=== PATIENT | female | born 1945 | race Caucasian/White ===

== ENCOUNTER 2018-07-06 08:09 | Day surgery (SDC) | payer MEDICARE, BC ==
[~2018-07-06 08:09] MED LIST: Cefuroxime 10 MG/ML SYRINGE EYERT SCH; Lidocaine 1% PF 2 ML SDV INJECT SCH; Pilocarpine 4% Ophth Soln 15 ML Bot EYERT SCH
[2018-07-06] MEDS: Polymyxin B/Trimethoprim 10 ML Bottle EYERT SCH ×3 (09:28→11:20)
[2018-07-06] MEDS: Brimonidine 0.2% Ophth Soln 5 ML Bottle EYERT SCH ×3 (09:33→11:20)
--- NOTE | 2018-07-06 09:37 | PCM.PREANE ---
Preanesthetic Assessment - Procedure Proposed Procedure: right cataract - Anesthesia/Transfusion/Family Hx Anesthesia History: Prior Anesthesia Without Reaction Family History of Anesthesia Reaction: No Transfusion History: No Prior Transfusion(s) - Review of Systems General: No Symptoms Pulmonary: No Symptoms Cardiovascular: No Symptoms Gastrointestinal: No Symptoms Neurological: No Symptoms Other: Reports: Diabetes, Sinus Problem - Physical Assessment NPO Status Date: 07/05/18 NPO Status Time: 23:00 Pulse: 72 O2 Sat by Pulse Oximetry: 98 Respiratory Rate: 16 Blood Pressure: 163/63 Temperature: 98.1 F Height: 5 ft 4 in Weight: 68.039 kg ASA Class: 2 Mental Status: Alert & Oriented x3 Airway Class: Mallampati = 1 Dentition: Reports: Broken Tooth/Teeth, Missing Tooth/Teeth, Caries Thyro-Mental Finger Breadths: 3 Mouth Opening Finger Breadths: 3 ROM/Head Extension: Full Lungs: Clear to Auscultation, Normal Respiratory Effort Cardiovascular: Regular Rate, Regular Rhythm - Allergies Allergies/Adverse Reactions: Allergies Allergy/AdvReac Type Severity Reaction Status Date / Time No Known Allergies Allergy Verified 07/05/18 15:29 - Blood Blood Available: No - Acknowledgements Anesthesia Type Planned: MAC Pt an Appropriate Candidate for the Planned Anesthesia: Yes Alternatives and Risks of Anesthesia Discussed w Pt/Guardian: Yes Pt/Guardian Understands and Agrees with Anesthesia Plan: Yes PreAnesthesia Questionnaire HEENT History: Reports: Cataract Cardiovascular History: Reports: Hypertension Respiratory History: Reports: None Gastrointestinal History: Reports: None Psychiatric History: Reports: None Oncologic (Cancer) History: Reports: None - Past Surgical History HEENT Surgical History: Reports: Cataract Surgery, Tonsillectomy - History Comment History Comment: amlodipine 5 mg q day. - SUBSTANCE USE Smoking Status *Q: Never Smoker Tobacco Use Within Last Twelve Months: No Second Hand Smoke Exposure: No Days Per Week of Alcohol Use: 0 Recreational Drug Use History: No - HOME MEDS Home Medications: Home Meds Lisinopril [Prinivil] 5 mg PO DAILY 07/05/18 [History] metFORMIN [Glucophage XR] 1,000 mg PO BID 07/05/18 [History] - CURRENT (IN HOUSE) MEDS Current Meds: Current Medications Brimonidine Tartrate (Alphagan 0.2% Ophth Soln) 0 ml EYERT ASDIRECTED WILL Stop: 07/06/18 18:00 Cefuroxime Sodium (Zinacef) 0 mg EYERT ASDIRECTED WILL Stop: 07/06/18 18:00 Lidocaine HCl (Xylocaine-Mpf 1%) 10 ml INJECT ASDIRECTED WILL Stop: 07/06/18 18:00 Phenylephrine HCl (Gregorio-Synephrine 2.5% Ophth Soln) 0 ml EYERT ASDIRECTED WILL Stop: 07/06/18 18:00 Pilocarpine HCl (Pilocar 4% Ophth Soln) 0 ml EYERT ASDIRECTED WILL Stop: 07/06/18 18:00 Polymyxin/Trimethoprim Sulfate (Polytrim Ophth Soln) 0 ml EYERT ASDIRECTED WILL Stop: 07/06/18 18:00 Tetracaine HCl (Tetracaine 0.5% Steri-Unit Tameka) 0 ml EYERT ASDIRECTED WILL Stop: 07/06/18 18:00 Tropicamide (Mydriacyl 1% Ophth Soln) 0 ml EYERT ASDIRECTED WILL Stop: 07/06/18 18:00
[2018-07-06] MEDS: Phenylephrine 2.5% Ophth Soln 2 ML Bot EYERT SCH ×5 (09:38→10:59)
[2018-07-06] MEDS: Tropicamide 1% Ophth Soln 15 ML Bottle EYERT SCH ×5 (09:44→10:47)
[2018-07-06] MEDS: Tetracaine HCl/PF 0.5% 4 ML Bottle EYERT SCH ×4 (10:38→11:10)
--- NOTE | 2018-07-06 11:23 | PCM48HPAN ---
Post Anesthesia Note - EVALUATION WITHIN 48HRS OF ANESTHETIC Vital Signs in Normal Range: Yes Patient Participated in Evaluation: Yes Respiratory Function Stable: Yes Airway Patent: Yes Cardiovascular Function Stable: Yes Hydration Status Stable: Yes Pain Control Satisfactory: Yes Nausea and Vomiting Control Satisfactory: Yes Mental Status Recovered: Yes Pulse Rate: 71 SaO2: 96 Resp Rate: 20 Temperature: 36.7 C Blood Pressure: 158/68
== END 2018-07-06 11:38 | disposition home or self-care (01) ==
LOC: JD.SDS 08:09
PROVIDERS: ATTEND Ophthalmology
DX: E11.36 Type 2 diabetes mellitus with diabetic cataract (principal); H25.811 Combined forms of age-related cataract, right eye; I10 Essential (primary) hypertension; E11.39 Type 2 diabetes mellitus with other diabetic ophthalmic complication; H40.1134 Primary open-angle glaucoma, bilateral, indeterminate stage; H42 Glaucoma in diseases classified elsewhere; H35.3131 Nonexudative age-related macular degeneration, bilateral, early dry stage; H35.363 Drusen (degenerative) of macula, bilateral; H35.371 Puckering of macula, right eye; Z79.84 Long term (current) use of oral hypoglycemic drugs; Z79.899 Other long term (current) drug therapy; Z98.42 Cataract extraction status, left eye; Z96.1 Presence of intraocular lens
CPT/HCPCS: 66984; A9270; J0697; C1780; J2001